=== PATIENT | male | born 1935 | race Caucasian/White ===

== ENCOUNTER 2022-09-13 09:37 | Outpatient (CLI) | payer MEDICARE, SELFPAY | END 2022-09-13 09:38 | disposition home or self-care (01) | LOC: AMB 09-15 06:24 | PROVIDERS: PCP Family Medicine; Visit Provider Family Medicine | DX: S06.5XAS Traumatic subdural hemorrhage with loss of consciousness status unknown, sequela (principal) | CPT/HCPCS: A0425; A0427; A0428 ==